=== PATIENT | male | born 1995 | race Two or more races ===

== ENCOUNTER 2016-09-28 06:12 | Emergency (ER) | payer MEDICAID ==
[~2016-09-28] VITALS: Ht 175.3 cm; Wt 79.4 kg
[~2016-09-28 06:12] MED LIST: ALBUTEROL SULF8.5 GM INH; AZITHROMYCIN500 MG ORAL; GUAIFENESIN1200 MG PO; MEDROL DOSEPAK4 MG ORAL; PROAIR HFA8.5 GM INH; PROMETHAZINE-C118 M1 ORAL; PROMETHAZINE-D118 ML ORAL; TESSALON PERLE100 M2 ORAL
[2016-09-28] MEDS ORDERED: PROMETHAZINE-C118 M1 ORAL (06:41)
[2016-09-28] MEDS ORDERED: AMOXICILLIN500 MG ORAL (06:41)
[2016-09-28] MEDS ORDERED: IBUPROFEN600 MG ORAL (06:41)
[2016-09-28] MEDS ORDERED: ALBUTEROL SULF8.5 GM INH (06:41)
[2016-09-28 06:45] VITALS: BP 138/87
[2016-09-28] MEDS ORDERED: Ketorolac 30mg Inj IM ONE (06:45)
[2016-09-28 07:02] VITALS: BP 138/87
--- NOTE | 2016-09-28 19:37 | Emergency Room Report ---
History of Present Illness General Chief Complaint: Flu Like Symptoms Source: Patient Present Illness HPI 21-year-old male presents ED complaining of cough and sore throat times one week. States cough is productive with yellowish phlegm. States throat pain, throbbing, 8/10, nonradiating. No aggravating or relieving factors. Denies ear ache. States multiple family members have the same presentation. Denies recent travel. Denies any other associated symptoms Allergies: Coded Allergies: No Known Allergies (Unverified , 01/22/16) Patient History Past Medical History: none Past Surgical History: none Pertinent Family History: none Social History: Denies: alcohol use, drug use, smoking Immunizations: UTD Reviewed Nursing Documentation: PMH: Agreed, PSxH: Agreed Review of Systems All Other Systems: negative except mentioned in HPI Physical Exam Vital Signs Date Time Temp Pulse Resp B/P Pulse Ox O2 Delivery O2 Flow Rate FiO2 09/28/16 06:19 99.3 105 20 138/87 100 Room Air Sp02 EP Interpretation: reviewed, normal General Appearance: no apparent distress, alert, GCS 15, non-toxic Head: normocephalic Eyes: bilateral eye PERRL, bilateral eye normal inspection ENT: hearing grossly normal, no angioedema, normal voice, TMs + canals normal, pharyngeal erythema Neck: full range of motion, supple/symm/no masses Respiratory: chest non-tender, lungs clear, normal breath sounds, speaking full sentences Cardiovascular #1: regular rate, rhythm, no edema Gastrointestinal: normal bowel sounds, non tender, soft, non-distended, no guarding, no rebound Rectal: deferred Genitourinary: no CVA tenderness Musculoskeletal: normal inspection Neurologic: alert, oriented x3, responsive, motor strength/tone normal, sensory intact, speech normal Psychiatric: normal inspection Skin: normal inspection Lymphatic: normal inspection Medical Decision Making Diagnostic Impression: Primary Impression: Pharyngitis Qualified Codes: J02.9 - Acute pharyngitis, unspecified ER Course Hospital Course 21-year-old male presents to ED complaining of sore throat + bodyaches plus cough Differential diagnoses include: URI, pharyngitis, otitis media Clinical course Patient placed on stretcher. After initial history, physical exam reveals a male in no acute distress. Bilateral TM unremarkable. There is pharyngeal erythema w/o tonsillar exudates. No lymphadenopathy. Clinical findings consistent with pharyngitis. given toradol in ED Diagnosis - pharyngitis Stable and discharged home with prescriptions for Motrin, amoxicillin, albuterol , cough syrup. Instructed to followup with PMD. return to ED if symptoms recur or worsen Last Vital Signs Date Time Temp Pulse Resp B/P Pulse Ox O2 Delivery O2 Flow Rate FiO2 09/28/16 07:02 99.3 86 17 138/87 100 Room Air Status: improved Disposition: HOME, SELF-CARE Condition: Stable Scripts Ibuprofen* (MOTRIN*) 600 Mg Tablet 600 MG ORAL Q8H Y for For Pain, #30 TAB 0 Refills Prov: YULY VILLATORO M.D. 09/28/16 Amoxicillin* (AMOXIL*) 500 Mg Capsule 500 MG ORAL THREE TIMES A DAY, #21 CAP Prov: YULY VILLATORO M.D. 09/28/16 Albuterol Sulfate* (ALBUTEROL SULFATE MDI*) 8.5 Gm Hfa.aer.ad 2 PUFF INH Q4H Y for cough/wheezing, #1 EA 0 Refills Prov: YULY VILLATORO M.D. 09/28/16 Codeine/Promethazine Hcl* (PROMETHAZINE-CODEINE SYRUP*) 118 Ml Syrup 5 ML ORAL Q6H Y for For Cough for 7 Days, ML 0 Refills Prov: YULY VILLATORO M.D. 09/28/16 Referrals: NOT CHOSEN CAROL/,REFERRING (PCP) Patient Instructions: Pharyngitis, Imio-hs-Clki YULY VILLATORO M.D. Sep 28, 2016 19:37
== END 2016-09-28 07:05 | disposition home or self-care (01) ==
LOC: EMR 06:37
DX: J02.9 Acute pharyngitis, unspecified (principal)
CPT/HCPCS: 96372; 99283; J1885

== ENCOUNTER 2016-12-30 17:30 | Emergency (ER) | payer MEDICAID, OTHER ==
[~2016-12-30] VITALS: Ht 175.3 cm; Wt 79.4 kg
[~2016-12-30 17:30] MED LIST changes: +AMOXICILLIN500 MG ORAL; +IBUPROFEN600 MG ORAL
[2016-12-30] MEDS ORDERED: NKM (17:37)
[2016-12-30 17:40] VITALS: BP 120/80
--- NOTE | 2016-12-30 17:44 | Emergency Room Report ---
History of Present Illness General Chief Complaint: Upper Respiratory Illness Source: Patient (Yaa Rahman) Present Illness HPI 21-year-old male presents to the emergency department complaining of active cough with fevers chills and body aches x3 days with no relief from over-the- counter medications. Patient denies recent travel and reports ill contacts as both his siblings had similar symptoms last week. he states she received his flu vaccination this November. he also reports nasal congestion and rhinorrhea he denies neck pain or stiffness. Denies rashes or abdominal pain. Denies sorethroat. Patient states he last took Tylenol this morning. Denies CP, Palpitations, LOC, AMS, dizziness, Changes in Vision, Sensation, paresthesias, or a sudden severe headache. (Yaa Rahman) Allergies: Coded Allergies: No Known Allergies (Unverified , 01/22/16) Patient History Past Medical History: see triage record Past Surgical History: none Pertinent Family History: none Immunizations: UTD Reviewed Nursing Documentation: PMH: Agreed, PSxH: Agreed (Yaa Rahman) Nursing Documentation-PMH Past Medical History: No History, Except For (Yaa Rahman) Review of Systems All Other Systems: negative except mentioned in HPI (Yaa Rahman) Physical Exam Vital Signs Date Time Temp Pulse Resp B/P Pulse Ox O2 Delivery O2 Flow Rate FiO2 12/30/16 17:31 101.5 108 18 120/80 97 Room Air Sp02 EP Interpretation: reviewed, abnormal - febrile and tachycardic General Appearance: no apparent distress, alert, GCS 15, non-toxic Head: normocephalic, atraumatic Eyes: bilateral eye PERRL, bilateral eye normal inspection ENT: hearing grossly normal, normal pharynx, no angioedema, normal voice Neck: full range of motion, no meningismus, no bony tend, supple/symm/no masses Respiratory: lungs clear, normal breath sounds, no rhonchi, speaking full sentences Cardiovascular #1: regular rate, rhythm, no edema, normal capillary refill Musculoskeletal: back normal, gait/station normal, normal range of motion, non- tender Neurologic: alert, oriented x3, responsive, motor strength/tone normal, sensory intact, speech normal Psychiatric: judgement/insight normal, memory normal, mood/affect normal, no suicidal/homicidal ideation Skin: normal color, no rash, warm/dry, well hydrated Lymphatic: no adenopathy (Yaa Rahman) Medical Decision Making PA Attestation Dr. Sun is my supervising Physician whom patient management has been discussed with. (Yaa Rahman) Diagnostic Impression: Primary Impression: Acute viral syndrome Additional Impression: Upper respiratory infection, viral ER Course 21-year-old male presents to the emergency department complaining of active cough with fevers chills and body aches x3 days with no relief from over-the- counter medications. Patient denies recent travel and reports ill contacts as both his siblings had similar symptoms last week. he states she received his flu vaccination this November. he also reports nasal congestion and rhinorrhea he denies neck pain or stiffness. Denies rashes or abdominal pain. Denies sore- throat. Patient states he last took Tylenol this morning. Denies CP, Palpitations, LOC, AMS, dizziness, Changes in Vision, Sensation, paresthesias, or a sudden severe headache. Ddx considered but are not limited to URI, pneumonia, PE, strep pharyngitis, meningitis, viral syndrome Vital signs: Pt. is febrile at 101.1 and tachycardic 108 BPM H&PE are most consistent with URI- no meningeal signs, oropharynx is not involved, no evidence of bacterial infection at this time. Non-toxic in appearance , other than chills in no acute distress. ORDERS: -my chest x-ray: No consolidation, effusion, pneumothorax or acute cardiopulmonary findings per soft read in ED by Dr. Sun ED INTERVENTIONS: -Tylenol PO -Re-evaluation of VS: fever has resolved, and pt. is no longer tachycardic. --PT. EDUCATION: Discussed antibiotic resistance with inappropriate prescribing of antibiotics for viral illnesses. Discussed signs and symptoms to indicate viral illness versus bacterial illness. DISCHARGE: At this time pt. is stable for d/c to home. Will provide printed patient care instructions, and any necessary prescriptions. Care plan and follow up instructions have been discussed with the patient prior to discharge. (Yaa Rahman) ER Course Scribe documentation reviewed by me and is accurate. (Soren Sun M.D.) Last Vital Signs Date Time Temp Pulse Resp B/P Pulse Ox O2 Delivery O2 Flow Rate FiO2 12/30/16 17:40 108 18 Room Air 12/30/16 17:40 120/80 97 12/30/16 17:31 101.5 (Yaa Rahman) Last Vital Signs Date Time Temp Pulse Resp B/P Pulse Ox O2 Delivery O2 Flow Rate FiO2 12/30/16 19:18 99.8 12/30/16 19:16 98 18 148/82 99 Room Air (Soren Sun M.D.) Disposition: HOME, SELF-CARE Condition: Stable Scripts Guaifenesin (Guaifenesin) 1,200 Mg Tab.er.12h 1200 MG PO BID for 10 Days, #20 TAB Prov: Yaa Rahman 12/30/16 Acetaminophen* (TYLENOL EXTRA STRENGTH*) 500 Mg Tablet 500 MG ORAL Q6H Y for Mild Pain/Temp > 100.5, #30 TAB 0 Refills Prov: Yaa Rahman 12/30/16 Codeine/Promethazine Hcl* (PROMETHAZINE-CODEINE SYRUP*) 118 Ml Syrup 5 ML ORAL Q6H Y for For Cough, #118 ML 0 Refills Prov: Yaa Rahman 12/30/16 Patient Instructions: Upper Respiratory Infection, Adult, Viral Respiratory Infection, [id number] Additional Instructions: Take medications as directed. Follow up with PCP in 3-5 days Return sooner to ED if new symptoms occur, or current symptoms become worse. Do not drink alcohol, drive, or operate heavy machinery while taking Cough Syrup as this may cause drowsiness. - Please note that this Emergency Department Report was dictated using [employer] attorney technology software, occasionally this can lead to erroneous entry secondary to interpretation by the dictation equipment. Yaa Rahman Dec 30, 2016 17:44 Soren Sun M.D. Jan 07, 2017 10:34
[2016-12-30] MEDS ORDERED: GUAIFENESIN1200 MG PO (19:15)
[2016-12-30] MEDS ORDERED: PROMETHAZINE-C118 M1 ORAL (19:15)
[2016-12-30] MEDS ORDERED: TYLENOL EXTRA500 MG ORAL (19:15)
[2016-12-30 19:16] VITALS: BP 148/82
--- NOTE | 2016-12-31 11:24 | Diagnostic Imaging Report ---
Indication: COUGH Technique: One view of the chest Comparison: none Findings: Lungs and pleural spaces are clear. Heart size is normal. Impression: No acute process
== END 2016-12-30 19:57 | disposition home or self-care (01) ==
LOC: EMR 17:49
DX: B34.9 Viral infection, unspecified (principal); J06.9 Acute upper respiratory infection, unspecified; R50.9 Fever, unspecified; R00.0 Tachycardia, unspecified
CPT/HCPCS: 71010; 99284